=== PATIENT | female | born 1980 | race Caucasian/White ===

== ENCOUNTER 2017-02-24 20:41 | Emergency (ER) | payer OTHER ==
[~2017-02-24] VITALS: Ht 180.3 cm; Wt 87.1 kg
--- NOTE | 2017-02-24 23:00 | NUR ---
MSE DONE BY DR ALMENDAREZ IN ROOM 02A.
--- NOTE | 2017-02-24 23:20 | NUR ---
Patient discharged to home in stable conditon. Written and verbal after care instructions given. Patient verbalizes understanding of instructions.
[2017-02-24 23:23] VITALS: BP 129/83
== END 2017-02-24 23:25 | disposition home or self-care (01) ==
LOC: ER 20:44
DX: M54.5 Low back pain (principal); Z88.2 Allergy status to sulfonamides; Z88.5 Allergy status to narcotic agent; V49.9XXA Car occupant (driver) (passenger) injured in unspecified traffic accident, initial encounter; Y93.89 Activity, other specified; Y92.410 Unspecified street and highway as the place of occurrence of the external cause; Y99.8 Other external cause status
CPT/HCPCS: A4663